=== PATIENT | female | born 1980 ===

== ENCOUNTER 2017-04-21 09:18 | Outpatient (CLI) | payer OTHER ==
[~2017-04-21] VITALS: Ht 167.6 cm; Wt 54.4 kg
[~2017-04-21 09:18] MED LIST: BUCALSEP SPRAY30 ML MM; TESSALON PERLE100 MG PO
[2017-04-21] MEDS ORDERED: ZANTAC300 MG PO (11:24)
== END 2017-04-21 09:35 | disposition home or self-care (01) ==
LOC: OFIC 805 09:18
DX: J37.0 Chronic laryngitis (principal); J31.0 Chronic rhinitis; J34.2 Deviated nasal septum

== ENCOUNTER → 2017-06-14 | Outpatient (CLI) | payer OTHER ==
[~2017-06-14] MED LIST changes: +ZANTAC300 MG PO
== END | disposition home or self-care (01) ==
LOC: PPHC 15:19
DX: B34.9 Viral infection, unspecified (principal)

== ENCOUNTER 2020-11-21 15:38 | Emergency (ER) | payer OTHER ==
[~2020-11-21] VITALS: Ht 167.6 cm; Wt 58.5 kg
[2020-11-21] MEDS ORDERED: DICLOFENAC SODI75 MG PO (18:41)
== END 2020-11-21 18:44 | disposition home or self-care (01) ==
LOC: ER 15:38
DX: R60.0 Localized edema (principal)

== ENCOUNTER 2021-04-21 12:08 | Outpatient (CLI) | payer OTHER ==
[~2021-04-21 12:08] MED LIST changes: +DICLOFENAC SODI75 MG PO
== END 2021-04-21 12:09 | disposition home or self-care (01) ==
LOC: TOM 12:08
PROVIDERS: ATTEND Internal Medicine
DX: C81.01 Nodular lymphocyte predominant Hodgkin lymphoma, lymph nodes of head, face, and neck (principal)

== ENCOUNTER 2022-01-20 10:01 | Outpatient (CLI) | payer OTHER | END 2022-01-20 10:16 | disposition home or self-care (01) | LOC: SONOGRAMA 10:01 | PROVIDERS: ATTEND Internal Medicine | DX: N63.0 Unspecified lump in unspecified breast (principal); N64.4 Mastodynia; E03.9 Hypothyroidism, unspecified; R10.2 Pelvic and perineal pain; N93.9 Abnormal uterine and vaginal bleeding, unspecified ==

== ENCOUNTER 2022-03-17 11:16 | Outpatient (CLI) | payer OTHER | END 2022-03-17 11:24 | disposition home or self-care (01) | LOC: MAMO-SONO 11:16 | PROVIDERS: ATTEND Obstetrics & Gynecology | DX: K76.0 Fatty (change of) liver, not elsewhere classified (principal); N63.0 Unspecified lump in unspecified breast; N64.4 Mastodynia ==